=== PATIENT | male | born 1995 | race Caucasian/White ===

== ENCOUNTER 2016-12-03 19:01 | Emergency (ER) | payer OTHER ==
[~2016-12-03] VITALS: Ht 180.3 cm; Wt 81.0 kg
[2016-12-03 19:25] VITALS: BP 119/78; PULSE 66; RESP 16; O2SAT 96
--- NOTE | 2016-12-03 21:54 | ED.REPORT ---
HPI-Extremity Problem Lower Date of Service Dec 03, 2016 ED Provider: Dr. Sebastian Pt is a healthy 21 y/o male presenting to the ED due to right knee injury which occurred 1 week ago. 1 week ago the patient was at work and a frayed cable line punctured his right knee. His right knee is now swollen and painful. Pt denies fever, chills, nausea, vomiting. He has been seen by Urgent Care for this twice and was sent home with bandages but was not started on antibiotics. He had an x- ray which was negative for fracture and foreign body. Nursing Notes Stated Complaint: KNEE PAIN Chief Complaint: Extremity Trauma Nursing Notes Reviewed: Yes Allergies: Coded Allergies: No Known Allergies (Unverified , 01/24/16) General Time Seen by MD: 21:54 Chief Complaint Knee injury right Hx Obtained From: Patient Arrived By: Walk-in Onset Occurred: 1 week ago Symptom Duration: Since onset Location: : Knee right Quality: Painful Severity: Current: Moderate Severity: Maximum: Moderate Recent Healthcare: Recent doctor visit, Recent testing, Previous diagnosis, Prior workup Past Medical History Past Medical History Denies Past Surgical History wrist times 2 and arm fracture Smoking History Current Every Day Smoker Social History Alcohol Use: 1-3 per day Drug Use: Denies drug use Other Social History: Local resident Occupation lives with girlfriend, 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 GI: Denies: Nausea, Vomiting Physical Exam Initial Vital Signs Vital Signs (First) Date Time Temp Pulse Resp B/P Pulse Ox O2 Delivery O2 Flow Rate FiO2 12/03/16 19:25 36.6 66 16 119/78 96 Room Air Initial VS: Reviewed, Vital signs normal Head / Eyes: Atraumatic, Normocephalic ENT: Mucous membranes moist, Conjunctiva normal, No scleral icterus Neck: Supple, Full range of motion Respiratory: Breath sounds normal, Clear to auscultation, No respiratory distress Cardiovascular: Regular rate & rhythm, Heart sounds normal, Intact distal pulses Abdomen / GI: Soft Upper Extremities: Vascular intact, Neuro intact Skin: Warm, Dry, No cyanosis Neurologic: Alert, Oriented, Nonfocal Psychiatric: Mood/affect normal, Behavior normal, Normal thought content Lower Extremity / Pelvis / MS: No deformity, Neurologic intact, Vascular intact RLE: Induration, erythema, and tenderness over the patella consistent with cellulitis with possible abscess Ankle / Foot: Atraumatic, Full range of motion, No swelling, No erythema, Non- tender, No deformity, Neurologic intact, Vascular intact General/Constitutional: Awake, Alert, No acute distress, Cooperative, Not toxic appearing Interpretation & Diagnostics Lab Results Interpretation Result Diagram: 12/03/16 2215 12/03/16 2215 Test 12/03/16 22:15 White Blood Count 10.7th/mm3 (3.8-10.1) Red Blood Count 4.18mil/mm3 (4.40-5.80) Hemoglobin 12.9g/dL (13.8-17.2) Hematocrit 38.2% (41.0-50.0) Mean Corpuscular Volume 91fL (81-100) Mean Corpuscular Hemoglobin 30.9pg (27.0-35.0) Mean Corpuscular Hemoglobin Concent 33.8% (32.0-37.0) Red Cell Distribution Width 12.0% (12.3-15.4) Platelet Count 309bil/L (150-400) Neutrophils (%) (Auto) 60% (40-74) Lymphocytes (%) (Auto) 29% (14-46) Monocytes (%) (Auto) 8% (4-12) Eosinophils (%) (Auto) 3% (0-5) Basophils (%) (Auto) 0% (0-3) Sodium Level 139mEq/L (134-144) Potassium Level 4.1mEq/L (3.5-5.2) Chloride Level 99mEq/L (97-108) Carbon Dioxide Level 26mmol/L (18-29) Blood Urea Nitrogen 17mg/dL (6-20) Creatinine 0.89mg/dL (0.76-1.27) Estimat Glomerular Filtration Rate 114mL/min (>59) Glucose Level 99mg/dL (60-99) Calcium Level 9.7mg/dL (8.5-10.1) Total Bilirubin 0.2mg/dL (0.0-1.2) Aspartate Amino Transf (AST/SGOT) 24U/L (0-50) Alanine Aminotransferase (ALT/SGPT) 18U/L (0-44) Alkaline Phosphatase 91U/L (25-150) Total Protein 7.1g/dL (6.4-8.4) Albumin 4.0g/dL (3.4-5.0) Hold [place] Top Tube Received (Received) Pulse Oximetry Interpretation Pulse Oximetry: Pulse Ox normal, On room air CBC Interpretation CBC normal BMP / CMP Interpretation BMP/CMP normal Procedures Arthrocentesis No aspirate. Dry tap. No septic joint or septic bursitis Time: 22:55 Aspiration Performed by: ED physician Consent / Setup / Site Prep: Consent from patient, Time-out performed, Hand hygiene observed, Stand sterile technique, Sterile drapes applied Indication: Septic joint evaluation Skin Preparation Agent: [place] Procedural Sedation/Analgesia: Analgesia: Dilaudid Joint Aspirated: Knee right Post-Procedure / Complications: Antibiotic oint applied, Dressing placed, No complications, Condition improved, Tolerated procedure well, Patient stable Re-Eval/Medical Decision Med Decision/Clinical Course Right knee had full range of motion without limitations or pain. Septic arthritis highly unlikely. No effusion palpable. I was concerned for possible prepatellar bursitis. The bursa however was not at all fluid-filled. There is cellulitis with induration. I was careful not to put the needle through cellulitic tissue. Rocephin and vancomycin infused. Leg was wrapped. Neurovascularly intact post wrapping. Knee immobilizer crutches. Come back to the emergency department in 12 hours for a repeat dose of vancomycin. If all is well he can transition to Augmentin and Bactrim. We will refer to orthopedics as well. He did have x-rays in the clinic and there is no foreign body or fracture. I do not feel that these were emergently indicated to repeat. Source of Hx: Old records Re-Evaluation/Progress : Time of Eval: 23:59 Re-Evaluation/Progress Note: Pt rechecked. Informed pt of plan for discharge. Pt understands and agrees with plan for discharge. F/U instructions and RTER warnings given. All questions addressed. Counseled Regarding: Diagnosis, Lab results, Need for follow-up, When/why to return to ED Discharge & Departure Impression: Primary Impression: Cellulitis of right knee Disposition: Home Discharge Condition All VS Reviewed: Yes Condition: Stable Patient Instructions: Cellulitis (ED) Additional Instructions: You have cellulitis of your right knee, an infection of the skin. An aspiration was performed today which showed that there was no fluid collection. Take Augmentin 2 times daily for 10 days. Take Bactrim 2 times daily for 10 days. Take [place] 1-2 tabs every 6 hours as needed for moderate-severe pain. Do not drive, drink alcohol, or consume acetaminophen while taking [place]. Keep your knee wrapped, use crutches, and keep it elevated as much as possible. I would like you to return to the ER in 12 hours to receive another dose of Vancomycin. Return sooner if you develop worsening pain/swelling/redness, fever, vomiting, or for other concerning symptoms. Follow-up with the orthopedic clinic as you may need another aspiration if this liquifies. Call to schedule an appointment. Referrals: Osito Cordova DO [facility] Scribe Attestation Portions of this note were transcribed by Trent Mae. I, Dr. Sebastian personally performed the history, physical exam and medical decision-making; I reviewed and confirmed the accuracy of the information in the transcribed note. copies to: Osito Cordova Todd P DO Dec 03, 2016 21:54 RTENT MAE Dec 03, 2016 22:04
[2016-12-03] MEDS ORDERED: Lidocaine 1%-Epi 1:100,000 50 mL Inj NERVEBLOCK ONE (22:05)
[2016-12-03] MEDS ORDERED: cefTRIAXone Inj 2,000 MG in Dextrose 5% Minibag Plus 50 ML IV ONE (22:05)
[2016-12-03] MEDS ORDERED: Vancomycin Inj 1,750 MG in Dextrose 5% 500 ML IV ONE (22:05)
[2016-12-03] MEDS: HYDROmorphone 0.5 mg/0.5 mL iSecure Syringe IVPUSH PRN ×2 (22:15→22:55)
[2016-12-03 22:24] LABS: Mean Corpuscular Hemoglobin 30.9 pg (27.0-35.0); Mean Corpuscular Volume 91 fL (81-100); Platelet Count 309 bil/L (150-400)
[2016-12-03] MEDS ORDERED: Ondansetron 2 mg/mL 2 mL Inj ONE (22:24)
[2016-12-03 22:25] LABS: BASOPHILS % (AUTO) 0 % (0-3); EOSINOPHILS % (AUTO) 3 % (0-5); MONOCYTES % (AUTO) 8 % (4-12); NEUTROPHILS % (AUTO) 60 % (40-74)
[2016-12-04] MEDS ORDERED: HYDROcodone-APAP 5-325 mg Tablet PO ONE (00:25)
[2016-12-04] MEDS ORDERED: Sodium Chloride LOK Flush 10 mL Syringe IVFLUSH SCH (00:30)
[2016-12-04] MEDS ORDERED: _HYDROcodone/APAP 5-325 mg Tablet PO PRN (00:55)
[2016-12-04 01:45] VITALS: BP 130/53; PULSE 59; O2SAT 98
== END 2016-12-04 01:47 | disposition home or self-care (01) ==
LOC: SED 19:01
DX: L03.115 Cellulitis of right lower limb (principal); W45.8XXA Other foreign body or object entering through skin, initial encounter; Y93.9 Activity, unspecified; Y92.69 Other specified industrial and construction area as the place of occurrence of the external cause; Y99.0 Civilian activity done for income or pay
CPT/HCPCS: 20610; 36415; 80053; 85025; 87040; 96365; 96366; 96367; 96375; 96376; 99285; J0696; J1170; J2405; J3370; J7060

== ENCOUNTER 2016-12-04 12:13 | Emergency (ER) | payer OTHER ==
[~2016-12-04] VITALS: Ht 180.3 cm; Wt 79.5 kg
[2016-12-04 12:18] VITALS: BP 122/60; PULSE 70; RESP 18; O2SAT 99
[2016-12-04] MEDS ORDERED: Vancomycin Dose per Pharmacist XX ONE (12:55)
--- NOTE | 2016-12-04 13:03 | ED.REPORT ---
HPI-Extremity Problem Lower Date of Service Dec 04, 2016 ED Provider: Remington Covarrubias PA-C Nate is an otherwise healthy 21-year-old male presenting to the emergency department for a repeat IV antibiotics first initiated last night. Patient was seen in this department for a right knee injury. Patient reports that one week prior his knee was punctured by a frayed cable. The knee became swollen and painful. The prepatellar bursa was aspirated last night but did not produce any fluid. X-rays negative for fracture or foreign body at the urgent care prior to this visit. Treated with IV vancomycin and Rocephin in the department last night. Asked to return to emergency department within 12 hours for repeat vancomycin. Leg was wrapped and placed in a knee immobilizer. On presentation today the patient reports improved pain, slight reduction in swelling. He denies fever, shaking chills, malaise, sweating, feeling ill, tachycardia, abdominal pain, vomiting. 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 Right knee: Swollen over the patella, with redness. There is a open lesion productive of a small amount of purulent discharge. Pressure and pain over the kneecap is aggravated by range of motion, which is otherwise painless. Head: Atraumatic, normocephalic. Eyes: No scleral icterus or injection. No discharge. Vision grossly intact. ENT: Voice clear, hearing grossly intact. Respiratory: Regular rate and rhythm. No respiratory distress. No increased work of breathing, speaks in complete sentences. Cardiovascular: Regular rate and rhythm, without murmur, gallop or rub. No pedal edema. Skin: Warm and dry. Neurological: Grossly nonfocal. Psychological: Alert and oriented. Speech appropriate, linear and logical. Behavior appropriate. Initial Vital Signs Vital Signs (First) Date Time Temp Pulse Resp B/P Pulse Ox O2 Delivery O2 Flow Rate FiO2 12/04/16 12:18 36.3 70 18 122/60 99 Room Air Normal Re-Eval/Medical Decision Med Decision/Clinical Course This is an otherwise healthy 21-year-old male diagnosed with cellulitis of the right knee by Dr. Sebastian last night. Asked to return to the department for IV vancomycin. On presentation the patient reports slight improvement in symptoms , denies symptoms of systemic illness. Physical exam reveals redness and swelling over the right kneecap, or productive of a small amount of purulent discharge, good range of motion. Vital signs are normal and the patient appears well. Treatment is initiated with IV access and vancomycin per pharmacy dosing. Wound is redressed, placed in knee immobilizer. I do not believe a return visit for IV antibiotics was necessary as this appears to be progressing well. Discussed the case with Dr. Chaudhry who met with and examine the patient. An appointment is made at [facility] orthopedics for the patient to follow-up tomorrow. Patient is advised to initiate oral antibiotics as prescribed by Dr. Sebastian and consulted with oral analgesia. Provided emergency return precautions. Patient verbalizes understanding of and consent to the plan. Discharge & Departure Impression: Primary Impression: Cellulitis of right knee Disposition: Home Discharge Condition All VS Reviewed: Yes Condition: Stable Patient Instructions: Cellulitis (ED) Additional Instructions: Your infection appears to be progressing well. We have repeated the IV antibiotics that were started last night. We will transition to oral antibiotics now. Dr. Sebastian instructed you to take Augmentin twice a day for 10 days as well as Bactrim twice a day for 10 days. Please fill these prescriptions which were provided last night. Take [place] one to 2 tabs every 6 hours as needed for moderate to severe pain. Do not drive, drink alcohol or consume acetaminophen while taking [place]. This prescription was also provided last night. Follow-up with Dr. Cordova's office. I have made an appointment for 1:30 tomorrow. Please check in at 1:15. You will be provided with the address. Please call them if you need to change this time. Return to the emergency department for new or worsening symptoms including increasing redness, swelling, pain, fever or feeling ill. Referrals: Osito Cordova DO EDSupervising Provider for APC: Jeremy Chaudhry MD Attending Statement Discussed patient with FAM Covarrubias. I evaluated patient independently and agree with plan as above. In brief 21-year-old male with right knee cellulitis treated with vancomycin yesterday. Here for recheck today. Redosed with vancomycin today. Range of motion full with no tenderness do not suspect septic joint. There is mild erythema. There is swelling and erythema over the right prepatellar bursa though no fluid on evaluation yesterday. He reports the symptoms are improving and the swelling is decreased. Continue the oral antibiotics with return precautions follow-up with orthopedics and primary doctor as previously scheduled. copies to: Osito Cordova Seth PA-C Dec 04, 2016 13:03 Jeremy Chaudhry MD Dec 04, 2016 19:04
[2016-12-04] MEDS ORDERED: Vancomycin Inj 1,750 MG in 0.9% Sodium Chloride 500 ML IV ONE (13:05)
[2016-12-04 15:28] VITALS: BP 137/61; PULSE 72; RESP 16; O2SAT 98
== END 2016-12-04 15:29 | disposition home or self-care (01) ==
LOC: SED 12:13
DX: L03.115 Cellulitis of right lower limb (principal); F17.200 Nicotine dependence, unspecified, uncomplicated
CPT/HCPCS: 96365; 99282; J3370; J7040